=== PATIENT | female | born 1970 | race Caucasian/White ===

== ENCOUNTER 2017-11-16 15:49 | Emergency (ER) | payer BC ==
[2017-11-16 16:36] LABS: Urine Blood TRACE (NEG); Urine Glucose NEGATIVE (NEG); Urine Protein NEGATIVE (NEG); Urine Specific Gravity 1.015 (1.005-1.030)
[2017-11-16 17:35] LABS: Absolute Lymphocytes (CBC) 1.8 K/uL (0.7-4.9); Absolute Monocytes 0.4 K/uL (0.1-1.3); Absolute Neutrophil 6.3 K/uL (1.8-8.0); Basophils % 0.3 % (0-1.3); Eosinophils % 1.2 % (0-4.4); Hematocrit 41.3 % (36.0-45.0); Lymphocytes % 20.7 % (15.3-44.8); MCV 95.1 fL (80-100); MPV 9.9 fL (7.6-11.3); Monocytes % 4.9 % (3.3-12.3); RBC Red Blood Cell Count 4.34 M/uL (3.86-4.86)
[2017-11-16 17:37] LABS: Urine Bacteria 20-50 /HPF (<20); Urine Culture Reflex Order REFLEXED; Urine RBC <5 /HPF (NONE SEEN)
[2017-11-16 17:46] LABS: Bicarbonate 31 mEq/L (21-31); Glucose Level 99 mg/dL (65-120); Lipase 29 U/L (22-51); Potassium 3.5 mEq/L (3.6-5.0); Sodium Level 138 mEq/L (135-145)
[2017-11-16 17:52] LABS: ALT/SGPT 16 IU/L (10-60); AST/SGOT 22 IU/L (10-42); Albumin 4.5 g/dL (3.2-5.5); Alkaline Phosphatase 52 IU/L (42-121); BUN Blood Urea Nitrogen 14 mg/dL (6-20); Bilirubin Direct 0.1 mg/dL (0-0.2); Bilirubin Total 0.7 mg/dL (0.3-1.2)
--- NOTE | 2017-11-16 18:08 | RAD REPORT ---
EXAM DESCRIPTION: CT - Stone Protocol - 11/16/2017 5:55 pm CLINICAL HISTORY: Abdominal pain. Right abdominal pain COMPARISON: None. TECHNIQUE: Computed axial tomography of the abdomen pelvis was obtained without oral or IV contrast. Lack of IV and oral contrast limits evaluation of solid organs, bowel, and vessels. Coronal reformat brian images were obtained and reviewed. All CT scans are performed using dose optimization technique as appropriate and may include automated exposure control or mA/KV adjustment according to patient size. FINDINGS: A renal calculus is not seen. An ureteral calculus is not noted. A bladder calculus is not present. The liver, spleen, pancreas and adrenals appear grossly normal There is no evidence of diverticulitis. The appendix appears normal A 4.3 centimeter left ovarian cyst is present. Minimal amount of free fluid is present. An IUD is pre sent within the uterus. The right colon is filled with stool. The cecum measures 5.7 centimeters A tiny umbilical hernia is present IMPRESSION: Negative for a genitourinary calculus 4.3 centimeter left ovarian cyst Right colon is filled with stool
--- NOTE | 2017-11-16 19:08 | EDPHYS ---
Physician Documentation [facility] Name: Gloria Paez Age: 47 yrs Sex: Female : 1970 Arrival Date: 11/16/2017 Time: 15:52 Bed 28 Private MD: ED Physician Arben Ceballos HPI: 11/16 19:41 This 47 yrs old Female presents to ER via Ambulatory with complaints of gs Abdominal Pain. 19:41 The patient presents with abdominal pain in the right upper quadrant. Onset: The gs symptoms/episode began/occurred 4 day(s) ago. The symptoms radiate to right back. Associated signs and symptoms: Pertinent positives: constipation, chronic, Pertinent negatives: nausea and vomiting, diarrhea, fever. The symptoms are described as sharp. Modifying factors: the symptoms are aggravated by breathing deeply. Severity of pain: At its worst the pain was severe in the emergency department the pain has improved markedly. The patient has experienced similar episodes in the past, a few times. The patient has not recently seen a physician. 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 - Social history:: Smoking status: Patient/guardian denies using tobacco, never smoked. ROS: 19:41 All other systems are negative. gs Exam: 19:41 Head/Face: Normocephalic, atraumatic. Eyes: Pupils equal round and reactive to light, gs extra-ocular motions intact. Lids and lashes normal. Conjunctiva and sclera are non-icteric and not injected. Cornea within normal limits. Periorbital areas with no swelling, redness, or edema. ENT: Nares patent. No nasal discharge, no septal abnormalities noted. Tympanic membranes are normal and external auditory canals are clear. Oropharynx with no redness, swelling, or masses, exudates, or evidence of obstruction, uvula midline. Mucous membranes moist. Neck: Trachea midline, no thyromegaly or masses palpated, and no cervical lymphadenopathy. Supple, full range of motion without nuchal rigidity, or vertebral point tenderness. No Meningismus. Chest/axilla: Normal chest wall appearance and motion. Nontender with no deformity. No lesions are appreciated. Cardiovascular: Regular rate and rhythm with a normal S1 and S2. No gallops, murmurs, or rubs. Normal PMI, no JVD. No pulse deficits. Respiratory: Lungs have equal breath sounds bilaterally, clear to auscultation and percussion. No rales, rhonchi or wheezes noted. No increased work of breathing, no retractions or nasal flaring. Back: No spinal tenderness. No costovertebral tenderness. Full range of motion. Skin: Warm, dry with normal turgor. Normal color with no rashes, no lesions, and no evidence of cellulitis. MS/ Extremity: Pulses equal, no cyanosis. Neurovascular intact. Full, normal range of motion. Neuro: Awake and alert, GCS 15, oriented to person, place, time, and situation. Cranial nerves II-XII grossly intact. Motor strength 5/5 in all extremities. Sensory grossly intact. Cerebellar exam normal. Normal gait. 19:41 Constitutional: The patient appears alert, awake. 19:41 Abdomen/GI: Palpation: mild abdominal tenderness, in the epigastric area, right upper quadrant and right lower quadrant. Vital Signs: 15:58 BP 113 / 82; Pulse 88; Resp 18; Temp 97.6(TE); Pulse Ox 100% on R/A; Weight 70.76 kg; hj Height 5 ft. 7 in. (170.18 cm); Pain 3/10; 16:09 BP 118 / 67; Pulse 91; Resp 18; Pulse Ox 99% ; tl3 18:48 BP 118 / 84; Pulse 113; Resp 18; Pulse Ox 98% on R/A; tl3 19:24 BP 120 / 68; Pulse 75; Resp 18; Pulse Ox 100% ; tl3 15:58 Body Mass Index 24.43 (70.76 kg, 170.18 cm) MDM: 16:18 Patient medically screened. 19:41 Differential diagnosis: bowel obstruction, cholecystitis, Cholelithiasis, gs diverticulitis, Irritable bowel syndrome, non-specific abd pain. Data reviewed: vital signs, nurses notes. 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 Response to treatment: the patient's symptoms have markedly improved after treatment, and as a result, I will discharge patient. 11/16 16:18 Order name: Urine Dipstick--Ancillary (enter results); Complete Time: 16:37 ag 11/16 16:18 Order name: Urine --Ancillary (enter results); Complete Time: 16:37 ag 11/16 16:40 Order name: Basic Metabolic Panel; Complete Time: 18:11 11/16 16:40 Order name: CBC with Diff; Complete Time: 18:11 11/16 16:40 Order name: Hepatic Function; Complete Time: 18:11 11/16 16:02 Order name: Urine Dipstick-Ancillary (obtain specimen); Complete Time: 18:50 11/16 16:02 Order name: Urine Test (obtain specimen); Complete Time: 18:50 11/16 16:40 Order name: Lipase; Complete Time: 18:11 11/16 16:40 Order name: Urine Microscopic Only; Complete Time: 18:11 11/16 16:40 Order name: IV Saline Lock; Complete Time: 18:47 11/16 16:40 Order name: D-Dimer; Complete Time: 18:11 11/16 17:37 Order name: CT Stone Protocol; Complete Time: 18:11 11/16 17:38 Order name: Urine Culture [facility] 11/16 16:40 Order name: Labs collected and sent; Complete Time: 18:47 11/16 16:40 Order name: Urine Dipstick-Ancillary (obtain specimen); Complete Time: 18:47 gs Administered Medications: No medications were administered Disposition: 11/16/17 19:07 Discharged to Home. Impression: Constipation. - Condition is Stable. - Discharge Instructions: Constipation, Adult, [id number]. - Prescriptions for Golytely - take 2 Liter by ORAL route one time for 1 day; 2 Liter. - Medication Reconciliation Form, Thank You Letter, Antibiotic Education, Prescription Opioid Use, Work release form form. - Follow up: Private Physician; When: 2 - 3 days; Reason: Re-evaluation by your physician. Signatures: Dispatcher [facility] Juni Ma RN RN hj Starr, Gregory, MD MD gs Lowrey, Tennille, RN RN tl3 Corrections: (The following items were deleted from the chart) 17:22 16:38 UA MICROSCOPIC+U.LAB.BRZ ordered. EDMS EDMS 19:27 19:07 11/16/2017 19:07 Discharged to Home. Impression: Constipation. Condition is tl3 Stable. Forms are Medication Reconciliation Form, Thank You Letter, Antibiotic Education, Prescription Opioid Use. Follow up: Private Physician; When: 2 - 3 days; Reason: Re-evaluation by your physician. carlyn
--- NOTE | 2017-11-16 19:08 | ER ---
Nurse's Notes [facility] Name: Gloria Paez Age: 47 yrs Sex: Female : 1970 Arrival Date: 11/16/2017 Time: 15:52 Bed 28 Private MD: Diagnosis: Constipation Presentation: 11/16 15:54 Presenting complaint: Patient states: i have spasm underneath my R rib area; denies hj cough; reports abd distention; denies nausea and vomiting; denies diarrhea; denies fever and chills;. Transition of care: patient was not received from another setting of care. Onset of symptoms was November 16, 2017. Initial Sepsis Screen: Does the patient meet any 2 criteria? No. Patient's initial sepsis screen is negative. Does the patient have a suspected source of infection? No. Patient's initial sepsis screen is negative. Care prior to arrival: None. 15:54 Method Of Arrival: Ambulatory 15:54 Acuity: YVONNE 3 hj Triage Assessment: 15:57 General: Appears in no apparent distress. uncomfortable, Behavior is calm, cooperative, hj appropriate for age. Pain: Complains of pain in right upper quadrant Pain currently is 3 out of 10 on a pain scale. GI: Reports upper abdominal pain. 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 - Social history:: Smoking status: Patient/guardian denies using tobacco, never smoked. Screenin:24 Abuse screen: Denies threats or abuse. Nutritional screening: No deficits noted. tl3 Tuberculosis screening: No symptoms or risk factors identified. Fall Risk None identified. Assessment: 15:58 GI: Bowel sounds present X 4 quads. Abd is soft. hj 16:09 General: Appears uncomfortable, slender, well groomed, well developed, well nourished, tl3 Behavior is calm, cooperative, appropriate for age. Pain: Complains of pain in right mid back and abdomen and right upper quadrant Pain radiates to radiates front to back. Neuro: Level of Consciousness is awake, alert, obeys commands, Oriented to person, place, time, situation, Appropriate for age. Cardiovascular: Heart tones S1 S2 present Capillary refill < 3 seconds in bilateral fingers Patient's skin is warm and dry. Respiratory: Airway is patent Trachea midline Breath sounds are clear bilaterally. : No signs and/or symptoms were reported regarding the genitourinary system. EENT: No signs and/or symptoms were reported regarding the EENT system. Derm: No signs and/or symptoms reported regarding the dermatologic system. Musculoskeletal: Reports pain in right mid back and abdomen and right upper quadrant since started Wednesday [place] [address] 18:48 Reassessment: Patient appears in no apparent distress at this time. No changes from tl3 previously documented assessment. Patient and/or family updated on plan of care and expected duration. Pain level reassessed. Patient is alert, oriented x 3, equal unlabored respirations, skin warm/dry/pink. Dr Ceballos just left bedside discussing POC. 19:24 Reassessment: Patient appears in no apparent distress at this time. No changes from tl3 previously documented assessment. Patient and/or family updated on plan of care and expected duration. Pain level reassessed. Patient is alert, oriented x 3, equal unlabored respirations, skin warm/dry/pink. Vital Signs: 15:58 BP 113 / 82; Pulse 88; Resp 18; Temp 97.6(TE); Pulse Ox 100% on R/A; Weight 70.76 kg; Height 5 ft. 7 in. (170.18 cm); Pain 3/10; 16:09 BP 118 / 67; Pulse 91; Resp 18; Pulse Ox 99% ; tl3 18:48 BP 118 / 84; Pulse 113; Resp 18; Pulse Ox 98% on R/A; tl3 19:24 BP 120 / 68; Pulse 75; Resp 18; Pulse Ox 100% ; tl3 15:58 Body Mass Index 24.43 (70.76 kg, 170.18 cm) ED Course: 15:52 Patient arrived in ED. sb2 15:56 Triage completed. 15:58 Arm band placed on right wrist. 16:00 Arben Ceballos MD is Attending Physician. 16:00 Patient has correct armband on for positive identification. Placed in gown. Bed in low tl3 position. Call light in reach. Side rails up X 1. Adult w/ patient. 16:00 No provider procedures requiring assistance completed. Inserted saline lock: 22 gauge tl3 in left antecubital area, using aseptic technique. Blood collected. 16:06 Tennille Torrez, RN is Primary Nurse. tl3 17:40 Patient moved to IN. vm2 17:55 CT completed. Patient tolerated procedure well. Patient moved back from IN. vm2 17:55 CT Stone Protocol In Process Unspecified. EDMS 19:27 IV discontinued, intact, bleeding controlled, No redness/swelling at site. Pressure tl3 dressing applied. Administered Medications: No medications were administered Outcome: 19:07 Discharge ordered by . 19:26 Discharged to home ambulatory. tl3 19:26 Condition: good 19:26 Discharge instructions given to patient, Instructed on discharge instructions, follow up and referral plans. medication usage, Demonstrated understanding of instructions, follow-up care, medications, Prescriptions given X 1. 19:27 Patient left the ED. tl3 Signatures: Dispatcher [employer] EDMS Juni Ma RN RN Zuleika Bob 2 Arben Ceballos MD MD Brigette Quintero [facility] Tennille Torrez, RN RN tl3 Corrections: (The following items were deleted from the chart) 16:00 15:58 Pulse 88bpm; Resp 18bpm; Pulse Ox 100% RA; Temp 97.6F Temporal; 70.76 kg; Height hj 5 ft. 7 in.; BMI: 24.4; Pain 3/10; hj
== END 2017-11-16 19:27 | disposition home or self-care (01) ==
LOC: ER 15:49
DX: K59.00 Constipation, unspecified (principal); Z88.5 Allergy status to narcotic agent
CPT/HCPCS: 36415; 74176; 76377; 80048; 80076; 81003; 81015; 81025; 83690; 85025; 85379; 87086; 87088; 99284